=== PATIENT | female | born 1995 | race Two or more races ===

== ENCOUNTER 2023-08-11 14:35 | Emergency (ER) | payer MEDICAID ==
[~2023-08-11] VITALS: Ht 157.5 cm; Wt 63.8 kg
[2023-08-11 14:42] VITALS: BP 118/80; PULSE 88; RESP 18; O2SAT 98
[2023-08-11] MEDS ORDERED: NABU-72 PO (15:28)
== END 2023-08-11 15:59 | disposition home or self-care (01) ==
LOC: ER 14:35
DX: M54.2 Cervicalgia (principal); M54.6 Pain in thoracic spine; M54.50 Low back pain, unspecified; R07.81 Pleurodynia; Z79.899 Other long term (current) drug therapy; V43.52XA Car driver injured in collision with other type car in traffic accident, initial encounter; Y93.89 Activity, other specified; Y92.410 Unspecified street and highway as the place of occurrence of the external cause; Y99.8 Other external cause status
CPT/HCPCS: 71101; 72040; 72100